=== PATIENT | female | born 1990 | race Hispanic/Latino ===

== ENCOUNTER 2016-10-07 16:08 | Outpatient (CLI) | payer MEDICAID ==
[2016-10-07 17:00] VITALS: BP 103/63
[2016-10-07] MEDS ORDERED: LACTATED RINGERS 500 ML IV ONE (17:00)
== END 2016-10-07 17:34 | disposition home or self-care (01) ==
LOC: TRG 16:08
PROVIDERS: ATTEND Obstetrics & Gynecology
DX: O47.03 False labor before 37 completed weeks of gestation, third trimester (principal); Z3A.34 34 weeks gestation of pregnancy
CPT/HCPCS: 59025

== ENCOUNTER 2016-10-17 16:37 | Outpatient (CLI) | payer MEDICAID ==
[2016-10-17 17:02] VITALS: BP 109/60
[2016-10-17] MEDS ORDERED: LACTATED RINGERS 1,000 ML ONE (17:21)
[2016-10-17] MEDS ORDERED: LACTATED RINGERS 500 ML IV ONE (17:49)
[2016-10-17 18:09] LABS: Bilirubin,Urine NEG (Negative); Blood,Urine SM (Negative); Ketones,Urine NEG (Negative); Leukocyte Esterase,Urine LG (Negative); Mucus,Urine FEW /HPF; Nitrite,Urine NEG (Negative); Protein,Urine <15 mg/dL mg/dL (Negative); Urobilinogen,Urine < 2.0 mg/dL (<2.0)
== END 2016-10-17 18:49 | disposition home or self-care (01) ==
LOC: TRG 16:37
PROVIDERS: ATTEND Obstetrics & Gynecology
DX: O47.03 False labor before 37 completed weeks of gestation, third trimester (principal); Z3A.36 36 weeks gestation of pregnancy
CPT/HCPCS: 81001; 96360; J7120

== ENCOUNTER 2016-10-29 14:01 | Outpatient (CLI) | payer MEDICAID ==
--- NOTE | 2016-10-30 10:10 | Ultrasound Report ---
ULTRASOUND OB LIMITED History: well being Technique: Transabdominal ultrasound with Doppler interrogation. Gestation: Single Position: Cephalic Amniotic Fluid: Normal JON = 17.4 cm Placenta: Anterior Placental Grade: 1 Heart Rate: 141 BPM Comment: Mild right hydronephrosis is identified with separation of the renal pelvis measuring proximately 8 mm. The right renal parenchyma is unremarkable. No left hydronephrosis. Followup is recommended.
--- NOTE | 2016-10-30 10:10 | Ultrasound Report ---
ULTRASOUND BIOPHYSICAL PROFILE: History: well being Technique: Transabdominal ultrasound with Doppler interrogation. 0 - breathing movements 2 - movements 2 - posture and tone 2 - Qualitative amniotic fluid volume 6 - TOTAL SCORE OF POSSIBLE 8 Heart Rate (bpm) 145
== END 2016-10-29 17:25 | disposition home or self-care (01) ==
LOC: TRG 14:01
PROVIDERS: ATTEND Obstetrics & Gynecology
DX: O47.1 False labor at or after 37 completed weeks of gestation (principal); Z3A.37 37 weeks gestation of pregnancy
CPT/HCPCS: 59025; 76815; 76819